=== PATIENT | male | born 1985 | race Caucasian/White ===

== ENCOUNTER 2017-02-08 21:47 | Emergency (ER) | payer OTHER ==
[2017-02-08 21:59] VITALS: RESP 18
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
--- NOTE | 2017-02-08 22:37 | CT ---
EXAM: CT Head Without Intravenous Contrast. CLINICAL HISTORY: Reason: Pain TECHNIQUE: Axial computed tomography images of the head/brain without intravenous contrast. CTDI is 60.3 mGy and DLP is 1108 mGy-cm. This CT exam was performed using one or more of the following dose reduction techniques: automated exposure control, adjustment of the mA and/or kV according to patient size, and/or use of iterative reconstruction technique. COMPARISON: No relevant prior studies available. FINDINGS: Brain: Unremarkable. No hemorrhage. No significant white matter disease. No edema. Ventricles: Unremarkable. No ventriculomegaly. Bones: No acute fracture. Sinuses: Unremarkable as visualized. No acute sinusitis. Mastoid air cells: Unremarkable as visualized. No mastoid effusion. IMPRESSION: Normal head/brain.
--- NOTE | 2017-02-08 22:42 | CT ---
EXAM: CT Maxillofacial Without Intravenous Contrast. CLINICAL HISTORY: Reason: Pain TECHNIQUE: Axial computed tomography images of the face without intravenous contrast. CTDI is 60.3 mGy and DLP is 1108.4 mGy-cm. This CT exam was performed using one or more of the following dose reduction techniques: automated exposure control, adjustment of the mA and/or kV according to patient size, and/or use of iterative reconstruction technique. COMPARISON: No relevant prior studies available. FINDINGS: Bones: No acute fracture. Extracranial soft tissues: Unremarkable. Sinuses: Unremarkable. No air-fluid levels. Orbits: Unremarkable. IMPRESSION: Normal face.
[2017-02-08 23:14] VITALS: BP 119/96; PULSE 87; TEMP 97.2
== END 2017-02-08 23:14 | disposition home or self-care (01) ==
LOC: EC 21:47
DX: S05.11XA Contusion of eyeball and orbital tissues, right eye, initial encounter (principal); F07.81 Postconcussional syndrome; F17.200 Nicotine dependence, unspecified, uncomplicated; W22.09XA Striking against other stationary object, initial encounter
CPT/HCPCS: 70450; 70486; 99284

== ENCOUNTER 2019-03-03 00:03 | Observation (INO) | payer OTHER ==
[2019-03-03] MEDS ORDERED: SODIUM CHLORIDE 0.9% 500 ML 500 ML IV STA (00:20)
[2019-03-03] MEDS ORDERED: DIPH,PERTUS(ACELL)TETVAC-LF 0.5 ML VIAL IM ONE (00:20)
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
--- NOTE | 2019-03-03 00:45 | XR ---
EXAM: XR Chest, 1 View CLINICAL HISTORY: ITS.REASON XR Reason: trauma TECHNIQUE: Frontal view of the chest. COMPARISON: No relevant prior studies available. FINDINGS: Lungs: Unremarkable. No consolidation. Pleural space: Unremarkable. No pneumothorax. Heart: Unremarkable. No cardiomegaly. Mediastinum: Unremarkable. Bones/joints: Unremarkable. IMPRESSION: Normal chest x-ray.
[2019-03-03 00:46] LABS: Glucose,Whole Blood 121 mg/dL (75-99)
[2019-03-03] MEDS ORDERED: MORPHINE SULFATE 4 MG/ML SYRINGE IV STA (00:48)
[2019-03-03 01:12] LABS: Basophils % (A) 0 %; Eosinophils # (A) 0.1 k/uL (0-0.7); Eosinophils % (A) 1 %; HGB 12.7 gm/dL (13.0-17.5); Lymphocytes % (A) 12 %; MCHC 33.4 g/dL (31.0-37.0); MCV 83.8 fL (80.0-100.0); Mean Platelet Volume 6.6; Monocytes # (A) 0.4 k/uL (0-1.0); Monocytes % (A) 5 %; Neutrophils % (A) 81 %; Platelet Count 246 k/uL (150-450); RBC 4.53 m/uL (4.30-5.90); RDW 13.9 % (11.5-15.5); WBC 8.6 k/uL (3.8-10.6)
[2019-03-03 01:20] LABS: Partial Thromboplastin Time 25.7 sec (22.0-30.0); Prothrombin Time 10.5 sec (9.0-12.0)
[2019-03-03 01:23] LABS: Creatine Kinase 69 U/L (55-170)
--- NOTE | 2019-03-03 01:23 | CT ---
EXAM: CT Abdomen and Pelvis With Intravenous Contrast CLINICAL HISTORY: ITS.REASON CT Reason: trauma TECHNIQUE: Axial computed tomography images of the abdomen and pelvis with intravenous contrast. CTDI is 7.5 mGy and DLP is 426.4 mGy-cm. This CT exam was performed using one or more of the following dose reduction techniques: automated exposure control, adjustment of the mA and/or kV according to patient size, and/or use of iterative reconstruction technique. COMPARISON: No relevant prior studies available. FINDINGS: Lung bases: Unremarkable. No mass. No consolidation. ABDOMEN: Liver: See below. Gallbladder and bile ducts: Cholelithiasis. No acute cholecystitis. No ductal dilation. Pancreas: See below. Spleen: See below. Adrenals: Unremarkable. No mass. Kidneys and ureters: See below. Stomach and bowel: Fluid within nondistended loops of small bowel and within stomach without bowel wall thickening or surrounding inflammation can be normal or can be seen with gastroenteritis in the right clinical setting. PELVIS: Appendix: No appendicitis, inflammatory changes of bowel or bowel obstruction. Bladder: Unremarkable. No mass. Reproductive: Unremarkable as visualized. ABDOMEN and PELVIS: Intraperitoneal space: No free fluid. No free air. Bones/joints: No acute fracture. No dislocation. Soft tissues: Unremarkable. Vasculature: Aorta, liver, spleen, pancreas, and kidneys are unremarkable. No abdominal aortic aneurysm. Lymph nodes: Unremarkable. No enlarged lymph nodes. IMPRESSION: No viscus or solid organ injury. No acute or healing fracture or bowel.
[2019-03-03 01:25] LABS: ALT 22 U/L (21-72); AST 22 U/L (17-59); African American GFR (CKD) >90 (>60 ml/min/1.73 sqM); Albumin 4.3 g/dL (3.5-5.0); Alcohol <10 mg/dL; Alkaline Phosphatase 91 U/L (38-126); Amylase 40 U/L (30-110); Anion Gap 9 mmol/L; Blood Urea Nitrogen 15 mg/dL (9-20); Calcium 9.5 mg/dL (8.4-10.2); Carbon Dioxide 28 mmol/L (22-30); Chloride 99 mmol/L (98-107); Glucose 129 mg/dL (74-99); Lipase 33 U/L (23-300); Potassium 4.2 mmol/L (3.5-5.1); Sodium 136 mmol/L (137-145); Total Bilirubin 0.9 mg/dL (0.2-1.3); Total Protein 7.5 g/dL (6.3-8.2)
[2019-03-03 01:35] LABS: Creatine Kinase MB 0.5 ng/mL (0.0-2.4); Troponin I <0.012 ng/mL (0.000-0.034)
[2019-03-03] MEDS ORDERED: METHADONE 5 MG TAB PO STA (01:38)
[2019-03-03] MEDS ORDERED: HYDROmorphone 0.5 MG/0.5 ML SYRINGE IVP PRN (01:39)
[2019-03-03] MEDS ORDERED: HYDROmorphone 1 MG/ML 1 ML SYRINGE IVP PRN (01:39)
[2019-03-03] MEDS ORDERED: NALOXONE 0.4 MG/ML 1 ML VIAL IV PRN (01:39)
[2019-03-03] MEDS ORDERED: SODIUM CHLORIDE 0.9% 1,000 ML IV SCH (01:45)
[2019-03-03] MEDS ORDERED: LIDOCAINE 1% INJ 10MG/ML (20 ML MDV) SQ STA (01:51)
[2019-03-03] MEDS ORDERED: HYDROmorphone 1 MG/ML 1 ML SYRINGE IVP STA ×2 (01:53→02:17)
--- NOTE | 2019-03-03 04:35 | ED ---
Medical Decision Making - Lab Data Result diagrams: 03/03/19 00:34 03/03/19 00:34 Lab Results 03/03/19 03/03/19 03/03/19 Range/Units 00:34 00:34 00:34 WBC 8.6 (3.8-10.6) k/uL RBC 4.53 (4.30-5.90) m/uL Hgb 12.7 L (13.0-17.5) gm/dL Hct 38.0 L (39.0-53.0) % MCV 83.8 (80.0-100.0) fL MCH 28.0 (25.0-35.0) pg MCHC 33.4 (31.0-37.0) g/dL RDW 13.9 (11.5-15.5) % Plt Count 246 (150-450) k/uL Neutrophils % 81 % Lymphocytes % 12 % Monocytes % 5 % Eosinophils % 1 % Basophils % 0 % Neutrophils # 7.0 (1.3-7.7) k/uL Lymphocytes # 1.0 (1.0-4.8) k/uL Monocytes # 0.4 (0-1.0) k/uL Eosinophils # 0.1 (0-0.7) k/uL Basophils # 0.0 (0-0.2) k/uL PT (9.0-12.0) sec INR (<1.2) APTT (22.0-30.0) sec Sodium 136 L (137-145) mmol/L Potassium 4.2 (3.5-5.1) mmol/L Chloride 99 (98-107) mmol/L Carbon Dioxide 28 (22-30) mmol/L Anion Gap 9 mmol/L BUN 15 (9-20) mg/dL Creatinine 0.65 L (0.66-1.25) mg/dL Est GFR (CKD-EPI)AfAm >90 (>60 ml/min/1.73 sqM) Est GFR (CKD-EPI)NonAf >90 (>60 ml/min/1.73 sqM) Glucose 129 H (74-99) mg/dL POC Glucose (mg/dL) (75-99) mg/dL POC Glu Vocational Rehabilitation Specialist ID Plasma Lactic Acid Doug (0.7-2.0) mmol/L Calcium 9.5 (8.4-10.2) mg/dL Total Bilirubin 0.9 (0.2-1.3) mg/dL AST 22 (17-59) U/L ALT 22 (21-72) U/L Alkaline Phosphatase 91 (38-126) U/L Total Creatine Kinase 69 (55-170) U/L CK-MB (CK-2) 0.5 (0.0-2.4) ng/mL CK-MB (CK-2) Rel Index 0.7 Troponin I <0.012 (0.000-0.034) ng/mL Total Protein 7.5 (6.3-8.2) g/dL Albumin 4.3 (3.5-5.0) g/dL Amylase 40 (30-110) U/L Lipase 33 (23-300) U/L Serum Alcohol <10 mg/dL Blood Type Blood Type Confirm Blood Type Recheck Antibody Screen Spec Expiration Date 03/03/19 03/03/19 03/03/19 Range/Units 00:34 00:34 00:34 WBC (3.8-10.6) k/uL RBC (4.30-5.90) m/uL Hgb (13.0-17.5) gm/dL Hct (39.0-53.0) % MCV (80.0-100.0) fL MCH (25.0-35.0) pg MCHC (31.0-37.0) g/dL RDW (11.5-15.5) % Plt Count (150-450) k/uL Neutrophils % % Lymphocytes % % Monocytes % % Eosinophils % % Basophils % % Neutrophils # (1.3-7.7) k/uL Lymphocytes # (1.0-4.8) k/uL Monocytes # (0-1.0) k/uL Eosinophils # (0-0.7) k/uL Basophils # (0-0.2) k/uL PT 10.5 (9.0-12.0) sec INR 1.0 (<1.2) APTT 25.7 (22.0-30.0) sec Sodium (137-145) mmol/L Potassium (3.5-5.1) mmol/L Chloride (98-107) mmol/L Carbon Dioxide (22-30) mmol/L Anion Gap mmol/L BUN (9-20) mg/dL Creatinine (0.66-1.25) mg/dL Est GFR (CKD-EPI)AfAm (>60 ml/min/1.73 sqM) Est GFR (CKD-EPI)NonAf (>60 ml/min/1.73 sqM) Glucose (74-99) mg/dL POC Glucose (mg/dL) (75-99) mg/dL POC Glu Vocational Rehabilitation Specialist ID Plasma Lactic Acid Doug 1.2 (0.7-2.0) mmol/L Calcium (8.4-10.2) mg/dL Total Bilirubin (0.2-1.3) mg/dL AST (17-59) U/L ALT (21-72) U/L Alkaline Phosphatase (38-126) U/L Total Creatine Kinase (55-170) U/L CK-MB (CK-2) (0.0-2.4) ng/mL CK-MB (CK-2) Rel Index Troponin I (0.000-0.034) ng/mL Total Protein (6.3-8.2) g/dL Albumin (3.5-5.0) g/dL Amylase (30-110) U/L Lipase (23-300) U/L Serum Alcohol mg/dL Blood Type O Positive Blood Type Confirm Blood Type Recheck CABO Indicated Antibody Screen NEGATIVE Spec Expiration Date 03/06/2019233303/03/19 03/03/19 Range/Units 00:35 00:44 WBC (3.8-10.6) k/uL RBC (4.30-5.90) m/uL Hgb (13.0-17.5) gm/dL Hct (39.0-53.0) % MCV (80.0-100.0) fL MCH (25.0-35.0) pg MCHC (31.0-37.0) g/dL RDW (11.5-15.5) % Plt Count (150-450) k/uL Neutrophils % % Lymphocytes % % Monocytes % % Eosinophils % % Basophils % % Neutrophils # (1.3-7.7) k/uL Lymphocytes # (1.0-4.8) k/uL Monocytes # (0-1.0) k/uL Eosinophils # (0-0.7) k/uL Basophils # (0-0.2) k/uL PT (9.0-12.0) sec INR (<1.2) APTT (22.0-30.0) sec Sodium (137-145) mmol/L Potassium (3.5-5.1) mmol/L Chloride (98-107) mmol/L Carbon Dioxide (22-30) mmol/L Anion Gap mmol/L BUN (9-20) mg/dL Creatinine (0.66-1.25) mg/dL Est GFR (CKD-EPI)AfAm (>60 ml/min/1.73 sqM) Est GFR (CKD-EPI)NonAf (>60 ml/min/1.73 sqM) Glucose (74-99) mg/dL POC Glucose (mg/dL) 121 H (75-99) mg/dL POC Glu Vocational Rehabilitation Specialist ID Mika Bailey Plasma Lactic Acid Doug (0.7-2.0) mmol/L Calcium (8.4-10.2) mg/dL Total Bilirubin (0.2-1.3) mg/dL AST (17-59) U/L ALT (21-72) U/L Alkaline Phosphatase (38-126) U/L Total Creatine Kinase (55-170) U/L CK-MB (CK-2) (0.0-2.4) ng/mL CK-MB (CK-2) Rel Index Troponin I (0.000-0.034) ng/mL Total Protein (6.3-8.2) g/dL Albumin (3.5-5.0) g/dL Amylase (30-110) U/L Lipase (23-300) U/L Serum Alcohol mg/dL Blood Type Blood Type Confirm O Positive Blood Type Recheck Antibody Screen Spec Expiration Date Disposition Clinical Impression: Laceration Disposition: ADMITTED IP TO THIS [facility] Condition: Serious Procedures - Laceration Laceration #1 Consent Obtained: verbal consent Indication: laceration Site: other (L flank) Size (cm): 3 Description: linear Anesthetic Used: lidocaine 1% Anesthesia Technique: local infiltration Amount (mls): 8 Pre-repair: wound explored Type of Sutures: nylon, vicryl Size of Sutures: 4-0 Number of Sutures: 6 (3 simple interrupted, 3 figure 8. ) Technique: simple, interrupted Patient Tolerated Procedure: well, no complications
[2019-03-03] MEDS: METHADONE 10 MG TAB PO SCH ×2 (07:32→10:06)
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
[2019-03-03] MEDS ORDERED: PANTOPRAZOLE 40 MG/10 ML VIAL IV SCH (09:00)
[2019-03-03 10:18] LABS: Appearance,Urine Clear (Clear); Bilirubin,Urine Negative (Negative); Blood,Urine Negative (Negative); Color,Urine Yellow; Glucose,Urine (UA) Negative (Negative); Ketones,Urine Negative (Negative); Leukocyte Esterase,Urine Negative (Negative); Nitrite,Urine Negative (Negative); Protein,Urine Negative (Negative); Specific Gravity,Urine 1.036 (1.001-1.035); Urobilinogen,Urine <2.0 mg/dL (<2.0)
[2019-03-03 10:40] LABS: Amphetamine Screen,Urine Detected (NotDetected); Barbiturate Screen,Urine Not Detected (NotDetected); Benzodiazepines Screen,Urine Detected (NotDetected); Cocaine Screen,Urine Not Detected (NotDetected); Methadone Screen, Urine Not Detected (NotDetected); Opiate Screen,Urine Detected (NotDetected); Oxycodone Screen, Urine Not Detected (NotDetected); Phencyclidine Screen,Urine Not Detected (NotDetected); Tricyclic Antidepressant,Urine Not Detected (NotDetected); Urn Cannabinoid Scrn Not Detected (NotDetected)
[2019-03-03 12:27] VITALS: BP 124/81; PULSE 94; RESP 16; TEMP 97.7
--- NOTE | 2019-03-03 12:45 | P.PN ---
Progress Note - Text Progress Note Date: 03/03/19 The patient's resting comfortably in his bed. He denies any significant abdominal pain. On exam his vital signs are stable. His abdomen soft. Patiently discharged home today.
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
== END 2019-03-03 13:47 | disposition home or self-care (01) ==
LOC: EC 00:03 → 1SOBS 01:43
PROVIDERS: ADMIT Surgery; ATTEND Surgery
DX: S31.119A Laceration without foreign body of abdominal wall, unspecified quadrant without penetration into peritoneal cavity, initial encounter (principal); F11.10 Opioid abuse, uncomplicated; F15.10 Other stimulant abuse, uncomplicated; X99.1XXA Assault by knife, initial encounter; Y92.410 Unspecified street and highway as the place of occurrence of the external cause; F41.9 Anxiety disorder, unspecified; G89.29 Other chronic pain; M54.5 Low back pain; F17.200 Nicotine dependence, unspecified, uncomplicated; Z87.11 Personal history of peptic ulcer disease; Z87.09 Personal history of other diseases of the respiratory system; Z83.79 Family history of other diseases of the digestive system
CPT/HCPCS: 12002; 36415; 71045; 74177; 80053; 80306; 80320; 81003; 82150; 82550; 82553; 83605; 83690; 84484; 85025; 85610; 85730; 86850; 86900; 86901; 90471; 90715; 93005; 96365; 96375; 96376; 99291

== ENCOUNTER 2022-01-17 14:10 | Observation (INO) | payer OTHER ==
--- NOTE | 2022-01-17 15:45 | ED ---
General Adult HPI - General Chief complaint: Recheck/Abnormal Lab/Rx Stated complaint: Pic Line Placement Time Seen by Provider: 01/17/22 15:30 Source: patient Mode of arrival: ambulatory Limitations: no limitations - History of Present Illness Initial comments: Patient is a 36-year-old male with history of intravenous drug use and endocarditis presenting for PICC line placement. Patient recently underwent inpatient stay for treatment of endocarditis at [facility]. Patient was seen in the office by Dr. Andersen and sent here for PICC line placement, as Dr. Andersen believes that he needs continued IV antibiotics and he does not want to send him home with a PICC line due to his history of IV drug use. Patient also has 3 wounds to the left upper thigh. They're currently dressed with wet to dry dressing. He denies chest pain, shortness of breath, palpitations, nausea, vomiting, abdominal pain, fever, chills, cough, URI like symptoms, diarrhea, hematochezia, dysuria, hematuria, flank pain. - Related Data Home Medications Medication Instructions Recorded Confirmed Methadone HCl [Methadone Intensol] 1 dose PO DIRECTED 01/17/22 01/17/22 oxyCODONE HCL [oxyCODONE HCL (IR)] 15 mg PO Q4H 01/17/22 01/17/22 Allergies Allergy/AdvReac Type Severity Reaction Status Date / Time No Known Allergies Allergy Verified 01/17/22 18:14 Review of Systems ROS Statement: Those systems with pertinent positive or pertinent negative responses have been documented in the HPI. ROS Other: All systems not noted in ROS Statement are negative. Past Medical History Past Medical History: No Reported History Additional Past Medical History / Comment(s): Hepatitis C History of Any Multi-Drug Resistant Organisms: MRSA Date of last positivie culture/infection: 12/25/21 MDRO Source:: Blood Past Surgical History: No Surgical Hx Reported Past Anesthesia/Blood Transfusion Reactions: Unable to Obtain Additional Past Anesthesia/Blood Transfusion Reaction / Comment(s): Pt has never had surgery. Past Psychological History: No Psychological Hx Reported Smoking Status: Current every day smoker Past Alcohol Use History: None Reported Past Drug Use History: Heroin, Methamphetamine - Past Family History Father Family Medical History: Liver Disease Additional Family Medical History / Comment(s): Father has hepatitis. He has 40% liver function. Mother Family Medical History: No Reported History General Exam Limitations: no limitations General appearance: alert, in no apparent distress Head exam: Present: atraumatic, normocephalic, normal inspection Eye exam: Present: normal appearance, EOMI. Absent: scleral icterus Neck exam: Present: normal inspection Respiratory exam: Present: normal lung sounds bilaterally. Absent: respiratory distress, wheezes, rales, rhonchi, stridor Cardiovascular Exam: Present: regular rate, normal rhythm, normal heart sounds. Absent: systolic murmur, diastolic murmur, rubs, gallop, clicks Neurological exam: Present: alert, oriented X3, CN II-XII intact Psychiatric exam: Present: normal affect, normal mood Skin exam: Present: warm, dry, normal color, other (Patient has 3 wounds currently packed with wet-to-dry dressing on the left upper thigh). Absent: rash Course Vital Signs 01/17/22 01/17/22 14:44 19:04 Temperature 98.1 F Pulse Rate 117 H 89 Respiratory 18 18 Rate Blood Pressure 119/77 113/71 O2 Sat by Pulse 98 98 Oximetry Medical Decision Making - Medical Decision Making Patient is a 36-year-old male presenting to the ER for PICC line placement from Dr. Andersen's office. I spoke with Dr. Andersen who saw the patient in his office today, and stated that the patient was in need of PICC line placement, admission, and transfer to a nursing care facility for continued IV antibiotics for the treatment of his endocarditis. Dr. Andersen states that the patient cannot be sent home with PICC line due to his history of IV drug use. On exam patient has 3 subcutaneous wounds to the right upper thigh currently packed with wet-to-dry dressing, otherwise exam WNL. Lab work is unremarkable. Patient will be admitted for PICC line placement for continued treatment of his endocarditis. I spoke with Dr. Urrutia who agreed to admit the patient for observation, Dr. Andersen and interventional radiology were consulted. I discussed this case with my attending Dr. Duval. - Lab Data Result diagrams: 01/17/22 16:49 01/17/22 16:49 Lab Results 01/17/22 01/17/22 Range/Units 16:49 16:49 WBC 10.4 (3.8-10.6) k/uL RBC 3.89 L (4.30-5.90) m/uL Hgb 11.1 L (13.0-17.5) gm/dL Hct 34.8 L (39.0-53.0) % MCV 89.4 (80.0-100.0) fL MCH 28.6 (25.0-35.0) pg MCHC 31.9 (31.0-37.0) g/dL RDW 14.7 (11.5-15.5) % Plt Count 394 (150-450) k/uL MPV 6.9 Neutrophils % 68 % Lymphocytes % 25 % Monocytes % 4 % Eosinophils % 1 % Basophils % 0 % Neutrophils # 7.0 (1.3-7.7) k/uL Lymphocytes # 2.6 (1.0-4.8) k/uL Monocytes # 0.5 (0-1.0) k/uL Eosinophils # 0.1 (0-0.7) k/uL Basophils # 0.0 (0-0.2) k/uL Sodium 136 L (137-145) mmol/L Potassium 4.4 (3.5-5.1) mmol/L Chloride 102 (98-107) mmol/L Carbon Dioxide 22 (22-30) mmol/L Anion Gap 12 mmol/L BUN 16 (9-20) mg/dL Creatinine 0.84 (0.66-1.25) mg/dL Est GFR (CKD-EPI)AfAm >90 (>60 ml/min/1.73 sqM) Est GFR (CKD-EPI)NonAf >90 (>60 ml/min/1.73 sqM) Glucose 101 H (74-99) mg/dL Calcium 9.3 (8.4-10.2) mg/dL Total Bilirubin 0.7 (0.2-1.3) mg/dL AST 29 (17-59) U/L ALT 27 (4-49) U/L Alkaline Phosphatase 84 (38-126) U/L Total Protein 8.3 H (6.3-8.2) g/dL Albumin 3.9 (3.5-5.0) g/dL Disposition Clinical Impression: Endocarditis, Heroin abuse Disposition: ADMITTED IP TO THIS [facility] Condition: Good Time of Disposition: 18:08 Decision to Admit Reason: Admit from EC Decision Date: 01/17/22 Decision Time: 18:08
[2022-01-17 16:57] LABS: Basophils % (A) 0 %; Eosinophils # (A) 0.1 k/uL (0-0.7); Eosinophils % (A) 1 %; HCT 34.8 % (39.0-53.0); HGB 11.1 gm/dL (13.0-17.5); Lymphocytes # (A) 2.6 k/uL (1.0-4.8); Lymphocytes % (A) 25 %; MCH 28.6 pg (25.0-35.0); MCHC 31.9 g/dL (31.0-37.0); MCV 89.4 fL (80.0-100.0); Mean Platelet Volume 6.9; Monocytes # (A) 0.5 k/uL (0-1.0); Monocytes % (A) 4 %; Neutrophils % (A) 68 %; Platelet Count 394 k/uL (150-450); RBC 3.89 m/uL (4.30-5.90); RDW 14.7 % (11.5-15.5); WBC 10.4 k/uL (3.8-10.6)
[2022-01-17 17:09] LABS: ALT 27 U/L (4-49); AST 29 U/L (17-59); African American GFR (CKD) >90 (>60 ml/min/1.73 sqM); Albumin 3.9 g/dL (3.5-5.0); Alkaline Phosphatase 84 U/L (38-126); Anion Gap 12 mmol/L; Blood Urea Nitrogen 16 mg/dL (9-20); Calcium 9.3 mg/dL (8.4-10.2); Carbon Dioxide 22 mmol/L (22-30); Chloride 102 mmol/L (98-107); Glucose 101 mg/dL (74-99); Non-African American GFR(CKD) >90 (>60 ml/min/1.73 sqM); Potassium 4.4 mmol/L (3.5-5.1); Sodium 136 mmol/L (137-145); Total Bilirubin 0.7 mg/dL (0.2-1.3); Total Protein 8.3 g/dL (6.3-8.2)
[2022-01-17] MEDS ORDERED: NALOXONE 0.4 MG/ML 1 ML VIAL IV PRN (17:35)
[2022-01-17] MEDS ORDERED: ACETAMINOPHEN TAB 325 MG TAB PO STA (20:15)
[2022-01-17] MEDS ORDERED: ACETAMINOPHEN TAB 325 MG TAB PO PRN (23:26)
[2022-01-17] MEDS ORDERED: MELATONIN 3 MG TABLET PO PRN (23:26)
[2022-01-17] MEDS ORDERED: ONDANSETRON 4 MG/2 ML VIAL IVP PRN (23:26)
--- NOTE | 2022-01-17 23:37 | P.HPIM ---
History of Present Illness H&P Date: 01/17/22 Chief Complaint: IV access, for antibiotic infusion 36 year old male with IVDA, Hep c, patient comes in from infusion center , due to failed attempt to get IV access for scheduled IV antibiotics for recent tricuspid valve endocarditis with vegetation. patient is an IVD abuser and was admitted here earlier in December of this year 2021, then he was transferred to [facility] for further care and debulking of his tricuspid valve vegetation, then he was discharge in stable condition with plan to continue outpatient IV infusions of antibiotics for 4 weeks, today was first dose and could not get IV access, for which he was sent in here for further car.e he denies any ongoing fever, chills, chest pain or trouble breathing , denies any nausea vomiting, or abd pain . he does have left anterior thigh wound, after draining an abscess, currently with wet to dry dressing. Review of Systems Pertinent positives as noted in HPI. All other systems were reviewed and are negative Past Medical History Additional Past Medical History / Comment(s): Hepatitis C, IV drug abuse History of Any Multi-Drug Resistant Organisms: MRSA Date of last positivie culture/infection: 12/25/21 MDRO Source:: Blood Past Surgical History: No Surgical Hx Reported Past Anesthesia/Blood Transfusion Reactions: Unable to Obtain Additional Past Anesthesia/Blood Transfusion Reaction / Comment(s): Pt has never had surgery. Past Psychological History: No Psychological Hx Reported Smoking Status: Current every day smoker Past Alcohol Use History: None Reported Past Drug Use History: Heroin, Methamphetamine - Past Family History Father Family Medical History: Liver Disease Additional Family Medical History / Comment(s): Father has hepatitis. He has 40% liver function. Mother Family Medical History: No Reported History Medications and Allergies Home Medications Medication Instructions Recorded Confirmed Type Methadone HCl [Methadone Intensol] 1 dose PO DIRECTED 01/17/22 01/17/22 History oxyCODONE HCL [oxyCODONE HCL (IR)] 15 mg PO Q4H 01/17/22 01/17/22 History Allergies Allergy/AdvReac Type Severity Reaction Status Date / Time No Known Allergies Allergy Verified 01/17/22 18:14 Physical Exam Vitals: Vital Signs Temp Pulse Resp BP Pulse Ox 01/17/22 19:04 89 18 113/71 98 01/17/22 14:44 98.1 F 117 H 18 119/77 98 Intake and Output 01/17/22 01/17/22 01/17/22 06:59 14:59 22:59 Other: Weight 92.986 kg Constitutional: No acute distress, conversant, pleasant Eyes: Anicteric sclerae, moist conjunctiva, Pupils equal round reactive to light ENMT: NC/AT Oropharynx clear, no erythema, or exudates Neck: Supple, no masses, or JVD No carotid bruits No thyromegaly Lungs: Clear to auscultation Clear to percussion Normal respiratory effort, no accessory muscle use Cardiovascular: Heart regular in rate and rhythm, no murmurs, no gallops, or rubs No peripheral edema Abdominal: Soft Nontender, no guarding, rebound or rigidity Abdomen moving with respiration Normoactive bowel sounds No hepatomegaly, No splenomegaly No palpable mass No abdominal wall hernia noted Skin: left anterior thigh with surgical wet to dry dressing, otherwise, Normal temperature, tone, texture, turgor Extremities: No digital cyanosis No clubbing Pedal pulses intact and symmetrical Radial pulses intact and symmetrical No calf tenderness Psychiatric: Alert and oriented to person, place and time Appropriate affect fair judgement Neuro Muscles Strength 5/5 in all 4 extremities Sensation to light touch grossly present throughout Cranial nerves II-XII grossly intact No focal sensory deficits Lymphatics: no palpable cervical or supraclavicular , or inguinal lymph nodes Results CBC & Chem 7: 01/17/22 16:49 01/17/22 16:49 Labs: Abnormal Lab Results - Last 24 Hours (Table) 01/17/22 01/17/22 Range/Units 16:49 16:49 RBC 3.89 L (4.30-5.90) m/uL Hgb 11.1 L (13.0-17.5) gm/dL Hct 34.8 L (39.0-53.0) % Sodium 136 L (137-145) mmol/L Glucose 101 H (74-99) mg/dL Total Protein 8.3 H (6.3-8.2) g/dL Assessment and Plan Assessment: 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
[2022-01-17] MEDS: SODIUM CHLORIDE 0.9% 1,000 ML IV SCH (23:54)
[2022-01-18] MEDS: ENOXAPARIN 40 MG/0.4 ML SYRINGE SQ SCH (07:40)
[2022-01-18 08:44] LABS: Basophils # (A) 0.1 k/uL (0-0.2); Basophils % (A) 1 %; Eosinophils # (A) 0.2 k/uL (0-0.7); Eosinophils % (A) 2 %; HCT 32.9 % (39.0-53.0); HGB 10.6 gm/dL (13.0-17.5); Lymphocytes # (A) 2.1 k/uL (1.0-4.8); Lymphocytes % (A) 29 %; MCH 28.7 pg (25.0-35.0); MCHC 32.2 g/dL (31.0-37.0); Mean Platelet Volume 8.5; Monocytes # (A) 0.4 k/uL (0-1.0); Monocytes % (A) 6 %; Neutrophils # (A) 4.4 k/uL (1.3-7.7); Neutrophils % (A) 61 %; Platelet Count 345 k/uL (150-450); WBC 7.2 k/uL (3.8-10.6)
[2022-01-18 09:44] LABS: ALT 28 U/L (4-49); African American GFR (CKD) >90 (>60 ml/min/1.73 sqM); Albumin 3.7 g/dL (3.5-5.0); Albumin/Globulin Ratio 0.9; Anion Gap 14 mmol/L; Blood Urea Nitrogen 15 mg/dL (9-20); C Reactive Protein 2.2 mg/dL (<1.0); Calcium 9.4 mg/dL (8.4-10.2); Carbon Dioxide 22 mmol/L (22-30); Chloride 105 mmol/L (98-107); Globulin 4.1 g/dL; Glucose 141 mg/dL (74-99); Non-African American GFR(CKD) >90 (>60 ml/min/1.73 sqM); Sodium 141 mmol/L (137-145); Total Bilirubin 0.8 mg/dL (0.2-1.3); Total Protein 7.8 g/dL (6.3-8.2)
[2022-01-18 09:50] LABS: Potassium 4.5 mmol/L (3.5-5.1)
[2022-01-18 09:51] LABS: AST 39 U/L (17-59); Alkaline Phosphatase 75 U/L (38-126)
--- NOTE | 2022-01-18 11:27 | P.PN ---
Subjective Progress Note Date: 01/18/22 Hospital course: Patient is a very pleasant 36-year-old male with a past medical history of hepatitis C and IV drug abuse with heroin and methamphetamine recently diagnosed with tricuspid valve endocarditis with vegetation and started on IV antibiotics with daptomycin. Patient has been admitted secondary to inability of outpatient infusion clinic to obtain IV access for required IV antibiotic treatment for infective endocarditis. Patient will require PICC line and ECF placement for continued ongoing IV antibiotics. Consult to infectious disease and wound care. Physical exam: Patient seen and fully evaluated at bedside this morning. Morning labs completed CBC revealing normocytic normochromic anemia with hemoglobin stable at 10.6, CMP unremarkable. CRP slightly elevated at 2.2. Dressing remains in place to left thigh with packing in place. Patient denies having any headache, lightheadedness, dizziness, chest pain, palpitations, shortness breath, nausea, vomiting, or any other complaints at this time. Vital signs unremarkable with blood pressure 114/73, heart rate 86, temp 98.1F, respiratory rate 18, and SpO2 100% on room air. Secondary to long-term insurance authorization pending and recent diagnosis of endocarditis, patient transitioned from observation to inpatient status for required IV antibiotic treatment and report given to [facility] hospitalist group will be taking over care of this patient until discharge. Vital signs reviewed and stable. General: Nontoxic, no distress and appears stated age. Derm: Skin warm and dry, normal coloration for ethnicity. Patient has 3 abscesses to left thigh that recently underwent I&D,and packing currently in place with dressings. Head: Atraumatic, normocephalic and symmetric. Eyes: EOMs intact, no lid lag, and anicteric sclera Mouth: no lip lesions, mucus membranes moist Cardiovascular: regular rate and rhythm with normal S1S2, no murmur, positive posterior tibial pulses bilaterally, and cap refill < 2 seconds. Lungs: Respirations even, regular, and unlabored on room air. Lungs CTA domenico aterally, no rhonchi, no rales, no wheezing, and no accessory muscle usage. Abdominal: soft, nontender to palpation, no guarding, no appreciable organomegaly Ext: ROM intact. No gross muscle atrophy, no edema, no contractures Neuro: Speech clear, face symmetrical and CN II-XII grossly intact with no noted focal neuro deficits Psych: Alert and oriented to person, place, time, and situation. Appropriate and pleasant affect. Assessment and Plan of Care: Endocarditis with tricuspid valve vegetation Hepatitis C Failed IV access at outpatient facility, requiring admission and ECF placement for ongoing required antibiotics -PICC line placement -Case management are ranging ECF placement, patient has been accepted by [facility] and pending insurance authorization. -Resume home pain medication regimen with oxycodone -Methadone requires verification and as patient does not have a outpatient prescription for use -Continued IV antibiotics with daptomycin -Consult to infectious disease Abscesses left thigh that is post I&D with packing in place -Wound care consult -Dressing changes and keep wound clean dry and intact CODE STATUS: Full code DVT prophylaxis: Lovenox Discussed with: Patient and RN Anticipated discharge date: Pending insurance authorization Anticipated discharge place: [facility] A total of 34 minutes was spent on the care of this complex patient more than 50% of the time was spent in counseling and care coordination. Objective - Vital Signs Vital signs: Vital Signs Temp 98.1 F 01/18/22 07:00 Pulse 86 01/18/22 07:00 Resp 18 01/18/22 07:00 BP 114/73 01/18/22 07:00 Pulse Ox 100 01/18/22 07:00 Intake & Output 01/17/22 01/18/22 01/18/22 18:59 06:59 18:59 Intake Total 118 Balance 118 Weight 92.986 kg Intake: Oral 118 - Labs CBC & Chem 7: 01/18/22 07:59 01/18/22 07:59 Labs: Abnormal Lab Results - Last 24 Hours (Table) 01/17/22 01/17/22 01/18/22 Range/Units 16:49 16:49 07:59 RBC 3.89 L 3.70 L (4.30-5.90) m/uL Hgb 11.1 L 10.6 L (13.0-17.5) gm/dL Hct 34.8 L 32.9 L (39.0-53.0) % Sodium 136 L (137-145) mmol/L Glucose 101 H (74-99) mg/dL C-Reactive Protein (<1.0) mg/dL Total Protein 8.3 H (6.3-8.2) g/dL 01/18/22 Range/Units 07:59 RBC (4.30-5.90) m/uL Hgb (13.0-17.5) gm/dL Hct (39.0-53.0) % Sodium (137-145) mmol/L Glucose 141 H (74-99) mg/dL C-Reactive Protein 2.2 H (<1.0) mg/dL Total Protein (6.3-8.2) g/dL
[2022-01-18] MEDS: NICOTINE 21MG/24HR PATCH TRANSDERM SCH (14:48)
[2022-01-18] MEDS: ALPRAZolam 0.25 MG TAB PO PRN ×2 (14:48→21:28)
[2022-01-18 20:53] VITALS: RESP 16
[2022-01-19] MEDS: SODIUM CHLORIDE 0.9% 1,000 ML IV SCH (00:31)
[2022-01-19] MEDS: ENOXAPARIN 40 MG/0.4 ML SYRINGE SQ SCH (07:24)
[2022-01-19] MEDS: NICOTINE 21MG/24HR PATCH TRANSDERM SCH (07:25)
[2022-01-19] MEDS: ALPRAZolam 0.25 MG TAB PO PRN ×2 (08:30→16:02)
--- NOTE | 2022-01-19 08:44 | P.CONS ---
History of Present Illness - Reason for Consult Consult date: 01/18/22 Tricuspid valve endocarditis MRSA Requesting physician: Marquita Saab - Chief Complaint Unable to get an IV x one day - History of Present Illness Patient is a 36-year-old male with a past medical history significant for IV drug use in this patient who was recently admitted at this facility and was diagnosed with the tricuspid valve endocarditis secondary to MRSA, keeping in mind the size of the vegetation the patient was subsequently sent to [facility] for endoscopic debulking of the vegetation to decrease the burden of infection the procedure was completed keeping in mind the patient IV drug use it was decided for the patient to go to the local infusion clinic for a daily daptomycin dosing through a peripheral IV which was switched over to weekly [place] keeping in mind his IV access and compliance, patient did went to [facility] yesterday however the nursing staff was not able to place a peripheral IV despite multiple attempts has the patient was sent to the [facility] ER for PICC line placement and possible placement, ER nurse was able to place an IV in the left upper and the case was discussed with me by the ER physician patient was started on daptomycin. On today's evaluation that is 01/18/2022 the patient denies having any fever or any chills, patient denies any headache or URI symptoms, denies any chest pain shortness of breath or cough no nausea no vomiting no abdominal pain no diarrhea patient did have 2 wound to the left thigh apparently he did have an abscess that was drained currently being treated with wet-to-dry dressing changes has been complaining of some dull aching pain 3-4 out of 10 especially with the dressing changes and is no foul-smelling drainage Review of Systems Positive point has been mentioned in the HPI rest of the systems are negative Past Medical History Past Medical History: No Reported History Additional Past Medical History / Comment(s): Hepatitis C History of Any Multi-Drug Resistant Organisms: MRSA Year Discovered:: 12/25/21 MDRO Source:: Blood Past Surgical History: No Surgical Hx Reported Past Anesthesia/Blood Transfusion Reactions: Unable to Obtain Additional Past Anesthesia/Blood Transfusion Reaction / Comm: Pt has never had surgery. Past Psychological History: No Psychological Hx Reported Smoking Status: Current every day smoker Past Alcohol Use History: None Reported Past Drug Use History: Heroin, Methamphetamine - Past Family History Father Family Medical History: Liver Disease Additional Family Medical History / Comment(s): Father has hepatitis. He has 40% liver function. Mother Family Medical History: No Reported History Medications and Allergies Home Medications Medication Instructions Recorded Confirmed Type oxyCODONE HCL [oxyCODONE HCL (IR)] 15 mg PO Q4H 01/17/22 01/17/22 History Allergies Allergy/AdvReac Type Severity Reaction Status Date / Time No Known Allergies Allergy Verified 01/17/22 18:14 Physical Exam Vitals: Vital Signs Temp Pulse Resp BP Pulse Ox 01/17/22 23:55 84 17 129/80 98 01/17/22 19:04 89 18 113/71 98 01/17/22 14:44 98.1 F 117 H 18 119/77 98 GENERAL DESCRIPTION: Middle-aged male lying in bed, no distress. No tachypnea or accessory muscle of respiration use. HEENT: Shows Pallor , no scleral icterus. Oral mucous membrane is dry. No pharyngeal erythema or thrush NECK: Trachea central, no thyromegaly. LUNGS: Unlabored breathing. Clear to auscultation anteriorly. No wheeze or crackle. HEART: S1, S2, regular rate and rhythm. No loud murmur ABDOMEN: Soft, no tenderness , guarding or rigidity, no organomegaly EXTREMITIES: Left thigh wound 2. No surrounding redness or drainage SKIN: No rash, no masses palpable. NEUROLOGICAL: The patient is awake, alert, oriented x3, mood and affect normal. Results CBC & Chem 7: 01/18/22 07:59 01/18/22 07:59 Labs: Abnormal Lab Results - Last 24 Hours (Table) 01/17/22 01/17/22 01/18/22 Range/Units 16:49 16:49 07:59 RBC 3.89 L 3.70 L (4.30-5.90) m/uL Hgb 11.1 L 10.6 L (13.0-17.5) gm/dL Hct 34.8 L 32.9 L (39.0-53.0) % Sodium 136 L (137-145) mmol/L Glucose 101 H (74-99) mg/dL Total Protein 8.3 H (6.3-8.2) g/dL Assessment and Plan (1) Endocarditis Current Visit: Yes Status: Acute Code(s): I38 - ENDOCARDITIS, VALVE UNSPECIFIED SNOMED Code(s): 79329313 Plan: 1patient with a tricuspid valve endocarditis from IV drug use secondary to MRSA in this patient who is status post endoscopic debulking of the vegetation now admitted to the hospital because of no IV access. 2PICC line has been requested and the patient is agreeable to go to the assisted for 4-week course of IV daptomycin to finish his course of therapy. 3wound to the left leg will apply wound VAC black foam continuous pressure of 125 mmHg change Saturday. We will follow on clinical condition and cultures to further adjust medication if needed Thank you for this consultation will follow this patient along with you Time with Patient: Greater than 30
[2022-01-19 12:19] VITALS: BP 94/64; PULSE 85; TEMP 98.4
--- NOTE | 2022-01-19 12:35 | P.DS ---
Providers Date of admission: 01/18/22 11:27 Expected date of discharge: 01/19/22 Attending physician: Yaw Parrish Consults: 01/17/22 17:35 Consult Physician Urgent Consulting Provider: Karthikeyan Andersen Consult Reason/Comments: endocarditis Do you want consulting provider notified?: Yes 01/17/22 17:36 Consult Physician Urgent Consulting Provider: Diogenes Corbett Reason/Comments: PICC line placement Do you want consulting provider notified?: Yes Primary care physician: Jannie Mcgregor Hospital Course: Final diagnosis Endocarditis with tricuspid valve vegetation status post debulking procedure at [facility] Hepatitis C Failed IV access in the outpatient setting Abscess of the left thigh IV drug abuse DVT prophylaxis GI prophylaxis Full code Discharge disposition Patient is being discharged in a stable condition with guarded prognosis to [facility] for IV therapy and wound care. Patient will follow-up with Dr. Valderrama in the outpatient setting upon discharge. Patient is continue on IV daptomycin daily for the next 4 weeks and close outpatient follow-up with infectious disease Dr. Andersen. Patient is to continue with the wound VAC and wound care as well. Total time taken is greater than 35 minutes. Hospital course This is a 36-year-old male who was recently admitted as patient has been following in the outpatient setting at the infusion center for IV access daily and continued antibiotics for endocarditis. Patient is status post debulking procedure [facility] for vegetation noted on tricuspid valve and also was known to have MRSA bacteremia. Patient being closely monitored with infectious disease and is maintained on IV daptomycin and will continue daily for the next 4 weeks and recommend close outpatient follow-up with infectious disease and also to continue with wound care and patient does have a wound VAC to the left thigh as mentioned below. Patient does take methadone as he does have an extensive past medical history of IV drug abuse with heroin and reports to his last use over a month ago prior to these hospitalizations. Patient is poor IV access and required hospitalization for PICC line placement and also ECF for close monitoring of the wound and antibiotic therapy as patient cannot receive an outpatient PICC line given his extensive IVDA. Patient is agreeable and has been accepted to [facility] and will be discharged today. Awaiting a PICC line placement today. Patient will need to have his methadone and/or Suboxone verified through pain management in order to receive. Currently no reports of chest pain, shortness of breath, or palpitations. Patient is afebrile. No reports of nausea or vomiting and patient is tolerating diet. Patient will be going to [facility] today. Physical exam: Gen: This is a 36-year-old male awake, alert and oriented 3, well-developed, well-nourished HEENT: Head is atraumatic, normocephalic. Pupils equal, round. Sclerae is anicteric. NECK: Supple. No JVD. No lymphadenopathy. No thyromegaly. LUNGS: Clear to auscultation. No wheezes or rhonchi. No intercostal retractions. HEART: Regular rate and rhythm. No murmur. ABDOMEN: Soft. Bowel sounds are present. No masses. No tenderness. EXTREMITIES: No pedal edema. No calf tenderness. Left thigh with wound VAC noted anteriorly and medial NEUROLOGICAL: Patient is awake, alert and oriented x3. Cranial nerves 2 through 12 are grossly intact. Please refer to medication reconciliation sheet for a list of medications. The impression and plan of care has been dictated by Kristine Vega, Nurse Practitioner as directed. Dr. Francois MD I have performed a history and examination and MDM of this patient, discussed the same with the dictator, and agree with the dictator's assessment and plan as written ,documented as a scribe. Based on total visit time, I have performed more than 50% of the visit. Patient Condition at Discharge: Stable Plan - Discharge Summary Discharge Rx Participant: No New Discharge Prescriptions: New Nicotine 21Mg/24Hr Patch [Habitrol] 1 patch TRANSDERM DAILY patch Acetaminophen Tab [Tylenol] 650 mg PO Q6HR PRN tab PRN Reason: Mild Pain Or Fever > 100.5 ALPRAZolam [Xanax] 0.25 mg PO Q6HR PRN #4 tab PRN Reason: Anxiety DAPTOmycin [Cubicin] 600 mg IVPB Q24H 31 Days #31 each Enoxaparin [Lovenox] 40 mg SQ DAILY each Melatonin 3 mg PO HS PRN tablet PRN Reason: Insomnia Continue oxyCODONE HCL [oxyCODONE HCL (IR)] 15 mg PO Q4H #6 tab Discharge Medication List ALPRAZolam [Xanax] 0.25 mg PO Q6HR PRN #4 tab 01/19/22 [Rx] Acetaminophen Tab [Tylenol] 650 mg PO Q6HR PRN tab 01/19/22 [Rx] DAPTOmycin [Cubicin] 600 mg IVPB Q24H 31 Days #31 each 01/19/22 [Rx] Enoxaparin [Lovenox] 40 mg SQ DAILY each 01/19/22 [Rx] Melatonin 3 mg PO HS PRN tablet 01/19/22 [Rx] Nicotine 21Mg/24Hr Patch [Habitrol] 1 patch TRANSDERM DAILY patch 01/19/22 [Rx] oxyCODONE HCL [oxyCODONE HCL (IR)] 15 mg PO Q4H #6 tab 01/19/22 [Rx] Follow up Appointment(s)/Referral(s): Meche Valderrama MD [Primary Care Provider] - 1-2 days Karthikeyan Andersen MD [STAFF PHYSICIAN] - 1 Week Activity/Diet/Wound Care/Special Instructions: Patient is going to [facility] as tolerated Patient is to continue on IV daptomycin daily for the next 4 weeks Follow-up with infectious disease Continue with wound VAC to the left thigh with medium granny foam black 120 mmHg and is also to be changed Saturday/Saturday/Saturday and as needed Continue heart healthy diet Discharge Disposition: TRANSFER TO SNF/ECF
[2022-01-19] MEDS ORDERED: HYDROcodone/APAP 5-325MG 1 EACH TAB PO PRN (12:48)
[2022-01-19] MEDS ORDERED: LIDOCAINE 1% INJ 10MG/ML (5 ML VIAL-PF) SQ ONE (15:02)
--- NOTE | 2022-01-19 16:23 | P.PN ---
Subjective Progress Note Date: 01/19/22 Principal diagnosis: MRSA tricuspid valve endocarditis Patient is a 36 year male with a past medical history significant for IV drug use in this patient has been recently diagnosed with tricuspid ValVE endocarditis secondary to MRSA in this patient subsequently did have endoscopic debulking of the vegetation admitted to the hospital for arrangement for outpatient IV antibiotic therapy. On today's evaluation that is 01/19/2022, the patient denies having any fever or any chills, the patient denies having any chest pain or shortness of breath or cough no nausea no vomiting no abdominal pain no diarrhea or currently waiting for PICC line placement Objective - Vital Signs Vital signs: Vital Signs Temp 98.4 F 01/19/22 12:18 Pulse 85 01/19/22 12:18 Resp 16 01/19/22 05:52 BP 94/64 01/19/22 12:18 Pulse Ox 98 01/19/22 05:52 Intake & Output 01/18/22 01/19/22 01/19/22 18:59 06:59 18:59 Intake Total 458 240 Balance 458 240 Intake: Intake, IV Titration 0 Amount Sodium Chloride 0.9% 1, 0 000 ml @ 20 mls/hr IV . Q24H [facility] Rx#:[id number] Oral 458 240 - Exam GENERAL DESCRIPTION: A middle-age male lying in bed in no distress RESPIRATORY SYSTEM: Unlabored breathing , decreased breath sounds at bases HEART: S1 S2 regular rate and rhythm , ABDOMEN: Soft , no tenderness EXTREMITIES: Left thigh wound is currently dressed with a wound VAC - Labs CBC & Chem 7: 01/18/22 07:59 01/18/22 07:59 Assessment and Plan (1) Endocarditis Current Visit: Yes Status: Acute Code(s): I38 - ENDOCARDITIS, VALVE UNSPECIFIED SNOMED Code(s): 27792438 Plan: 1patient with a tricuspid valve endocarditis from IV drug use secondary to MRSA in this patient who is status post endoscopic debulking of the vegetation now admitted to the hospital because of no IV access. 2PICC line has been requested and the patient is agreeable to go to the half-way for 4-week course of IV daptomycin to finish his course of therapy. 3wound to the left leg will apply wound VAC black foam continuous pressure of 125 mmHg change Saturday. Advised to follow-up in the wound care center 1-2 weeks post discharge Time with Patient: Less than 30
--- NOTE | 2022-02-05 08:12 | IR ---
EXAMINATION TYPE: IR cvc insert >=5 years DATE OF EXAM: 01/22/2022 COMPARISON: NONE CLINICAL HISTORY: Endocarditis Needs long-term intravenous access for antibiotics. PROCEDURE: Hand hygiene obtained with soap and water and alcohol-based hand rub. After informed consent, the skin overlying the left upper extremity vein was localized with ultrasoun d and noted to be compressible and patent. An ultrasound image was obtained and submitted on the pat ient's chart. The overlying skin was prepped and draped and Lidocaine was used for local anesthesia. A skin yinka was made with a scalpel. Access was gained to the vein under ultrasound guidance with a 21 gauge needle and a 0.018 inch wire was advanced. Access site was dilated with Peel-Away sheath and catheter tailored to the appropriate length and advanced such that the distal tip is at the cavoa trial junction. Spot image was obtained verifying placement. Catheter was fixed to the skin and a s terile dressing was placed following hemostasis. Catheter was aspirated and flushed with saline. Mark grant was discharged in stable condition without complication. Maximal barrier technique is utilized. Ultrasound image is documented on the chart. Ultrasound used with sterile technique. Fluoro time and fluoroscopic images submitted to document procedure: 14 intraoperative C-arm images, 1 minute fluoroscopy time supplied IMPRESSION: STATUS POST ULTRASOUND AND FLUOROSCOPIC GUIDED PICC LINE PLACEMENT, READY FOR USE. THIS PROCEDURE WAS PERFORMED BY THE UNDERSIGNED.
== END 2022-01-19 17:40 ==
LOC: EC 14:10 → 6NMEDSUR 18:19 → OBSVTOIN 01-18 11:27 → INTOOBSV 01-18 11:27 → 5NMEDONC 01-18 19:01 → UNDODISIN 01-19 17:40
PROVIDERS: ADMIT Hospitalist; ATTEND Hospitalist
PROC: B5181ZA Fluoroscopy of Superior Vena Cava using Low Osmolar Contrast, Guidance (ICD-10-PCS; 2022-01-19)
PROC: B548ZZA Ultrasonography of Superior Vena Cava, Guidance (ICD-10-PCS; 2022-01-19)
PROC: 02HV33Z Insertion of Infusion Device into Superior Vena Cava, Percutaneous Approach (ICD-10-PCS; principal; 2022-01-19 13:00)
DX: I33.0 Acute and subacute infective endocarditis (principal); I07.9 Rheumatic tricuspid valve disease, unspecified; B95.62 Methicillin resistant Staphylococcus aureus infection as the cause of diseases classified elsewhere; L02.416 Cutaneous abscess of left lower limb; B19.20 Unspecified viral hepatitis C without hepatic coma; F11.10 Opioid abuse, uncomplicated; F15.10 Other stimulant abuse, uncomplicated; D64.9 Anemia, unspecified; F17.200 Nicotine dependence, unspecified, uncomplicated; Z20.822 Contact with and (suspected) exposure to COVID-19; Z86.14 Personal history of Methicillin resistant Staphylococcus aureus infection; Z87.898 Personal history of other specified conditions; Z98.890 Other specified postprocedural states; Z83.79 Family history of other diseases of the digestive system
CPT/HCPCS: 96366; 96372 ×2; 96365; 99284; 36415; 36573; 80053 ×2; 85025 ×2; 86140; 87635; G0378 ×4; C1751; C1769; S4990 ×2; J2001; J1650 ×2; J0878 ×2

== ENCOUNTER 2024-04-27 17:58 | Emergency (ER) | payer OTHER | END 2024-04-27 22:50 | disposition home or self-care (01) | LOC: EC 17:58 | DX: T40.1X1A Poisoning by heroin, accidental (unintentional), initial encounter (principal) | CPT/HCPCS: 99283 ==